=== PATIENT | female | born 1970 | race Caucasian/White ===

== ENCOUNTER 2025-01-28 16:44 | Emergency (ER) | payer OTHER ==
[~2025-01-28] VITALS: Ht 157.5 cm; Wt 82.0 kg
[~2025-01-28 16:44] MED LIST: ALLO100T PO; ATOR-47 PO; CLOP75TA70 PO; FERR325T24 PO; FURO40TA4 PO; INSU100I52 SC; INSU75IN2 SC; LIDO1PAD55 TOP; METH-928 PO; METO25TA5 PO; MUPI2OIN2 TOP; MYCO1TAB2 PO; NITR-52 PO; ONDA-188 PO; OXYC325T14 PO; PANT1INJ3 PO; PRE5T PO; PREG150C PO; ROPI0.5T26 PO; SPIR25TA8 PO; TACR1CAP4 PO; [UNRECOGNIZED DRUG - CODE] PO; [UNRECOGNIZED DRUG - CODE] PO
[2025-01-28 16:50] VITALS: BP 121/80; PULSE 77; RESP 18; TEMP 97.4; O2SAT 100
--- NOTE | 2025-01-28 19:20 | DVH ---
CLINICAL INDICATION: Injury and swelling TECHNIQUE: 3 radiographic views of the left ankle were obtained. Comparison: None FINDINGS/IMPRESSION: Possible neuropathic joint. Correlate clinically. 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 Chronic changes are noted of the navicular. Soft tissue swelling over the medial and lateral malleolus is seen with widening of the ankle mortise suggesting subluxation. Pes planus with complete loss of the plantar arch.
--- NOTE | 2025-01-28 20:40 | ED.PDOC ---
Back pain HPI HPI Comments PT ARRIVED WITH C/O LEFT ANKLE PAIN AND SWELLING AFTER TWISTING IT WHILE PUSHING A BASKET AT [facility]. DENIES NUMBNESS OR WEAKNESS OR ANY OTHER INJURY. Chief Complaint: Lower Extremity Time Seen by MD: 18:11 Reviewed Notes: Nurses Notes, Medications, Allergies Allergies: Coded Allergies: NO KNOWN ALLERGIES (Unverified , 11/20/24) Home Meds Reported Medications Insulin Lispro Protamine & Lis (Humalog Mix 75/25 Kwikpen) 75 Mg/25 Kwp Inj, UNITS SC UD for 22 Days, #30 11/23/24 Oxycodone W/ Acetaminophen (Apap/Oxycodone) 1 Tab Tab, 1 TAB PO Q4-6HR PRN for 30 Days, #180 11/23/24 Lidocaine (Lidocaine) 5 % Pad, 2-3 PATCH TOP DAILY APPLY 2-3 PATCHES ON THE SKIN DAILY NEEDED. 12 HOURS ON AND 12 HOURS OFF. 11/23/24 Mupirocin (Pseudomonas Fluores (Mupirocin) 2 % Oin, 1 APPLIC TOP TID for 15 Days, #44 11/23/24 Insulin Lispro (Insulin Lispro) 100 Unit/Ml Inj, 100 UNIT SC DAILY for 37 Days, #30 11/21/24 Phenazopyridine HCl (Eq Urinary Pain Relief Ma) 99.5 Mg Tab, 99.5 MG PO UD 11/21/24 Nitrofurantoin (Nitrofurantoin) 100 Mg Cap, 1 CAP PO BID, #20 CAP 11/21/24 Ondansetron HCl (Ondansetron Hydrochloride) 4 Mg Tab, 4 MG PO Q6HR PRN for 7 Days, #30 11/21/24 Pregabalin (Lyrica) 150 Mg Cap, 1 CAP PO BID, #60 CAP 5 Refills 11/21/24 Allopurinol (Allopurinol) 100 Mg Tab, 100 MG PO DAILY for 30 Days, MG 11/21/24 Methenamine Hippurate (Methenamine Hippurate) 1 Gm Tab, 1 GM PO BID, TAB 11/21/24 Clopidogrel Bisulfate (CLOPIDOGREL) 75 Mg Tab, 75 MG PO DAILY for 30 Days, MG 11/21/24 Ergocalciferol (Drisdol) 50,000 Unit Cap, 26520 UNIT PO QWEEKLY for 28 Days, #4 11/21/24 Furosemide (Furosemide) 40 Mg Tab, 40 MG PO DAILY for 30 Days 11/21/24 Spironolactone (Spironolactone) 25 Mg Tab, 2 TAB PO DAILY, #90 TAB 1 Refill 11/21/24 Prednisone (Prednisone) 5 Mg Tab, 5 MG PO DAILY, TAB 11/21/24 Ferrous Sulfate (Ferrous Sulfate) 325 Mg Tab, 325 MG PO BID for 30 Days, MG 11/21/24 Atorvastatin Calcium (ATORVASTATIN CALCIUM) 80 Mg Tab, 1 TAB PO DAILY, #30 TAB 5 Refills 11/21/24 Ropinirole Hydrochloride (Ropinirole Hcl) 0.5 Mg Tab, 3 TAB PO HS for 30 Days, #90 11/21/24 Metoprolol Tartrate (Metoprolol Tartrate) 25 Mg Tab, 25 MG PO BID for 30 Days, MG 11/21/24 Tacrolimus (Tacrolimus) 1 Mg Cap, 2 CAP PO BIDAC for 30 Days, #120 two capsules 11/21/24 Pantoprazole Sodium (PANTOPRAZOLE SODIUM) 40 Mg Inj, 40 MG PO DAILY, INJ 11/21/24 Mycophenolate Sodium (Mycophenolic Acid Dr) 360 Mg Tab, 360 MG PO BIDAC, TAB 11/21/24 Mode of Arrival: Wheelchair Past Medical History PAST MEDICAL HISTORY: CHF, DM, HTN, CO All Other Systems: Reviewed and Negative (SEE HPI) Physical Exam General Appearance: No Apparent Distress, Normal HEENT: Pharynx Normal Neck: Full Range of Motion, Non-Tender Respiratory: Lungs Clear, No Respiratory Distress, Normal Breath Sounds Cardiovascular: No Murmur, Normal Peripheral Pulses, Regular Rate/Rhythm Breast Exam: Deferred Gastrointestinal: Non Tender, Soft Genitalia: Deferred Pelvic: Deferred Rectal: Deferred Extremities: Normal capillary refill, Non-tender Musculoskeletal : Location: Left Extremity Location: Ankle (MODERATE EDEMA ANTERIOR ANKLE AND DORSUM FOOT STRENGTH SENSORY MOTION INTACT POSITIVE PEDAL PULSE) Apperance: Normal Neurologic: Alert, No Motor Deficits, Normal Affect, Normal Mood, No Sensory Deficits Cerebellar Function: Normal Reflexes: NOT DONE Skin: Dry, Normal Color, Warm Lymphatic: No Adenopathy Was a procedure done? Was a procedure done?: No Back Pain Differential Dx Differential Diagnosis: Fracture, Musculoskeletal Pain, Strain X-Ray, Labs, Meds, VS Vital Signs Date Time Temp Pulse Resp B/P (MAP) Pulse Ox O2 Delivery O2 Flow Rate FiO2 11/7/25 16:50 Room Air 01/28/25 16:50 97.4 77 18 121/80 100 97.4 X-Ray, Labs, Meds, VS Comment FINDINGS/IMPRESSION: Possible neuropathic joint. Correlate clinically. 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 Chronic changes are noted of the navicular. Soft tissue swelling over the medial and lateral malleolus is seen with widening of the ankle mortise suggesting subluxation. Pes planus with complete loss of the plantar arch. PATIENT PLACED IN STIRRUP AND SHORT-LEG POSTERIOR SPLINT. PATIENT CURRENTLY WITH WHEELCHAIR OF HER OWN. 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 ADVISED ON RICE. ADVISED ON ER RETURN PRECAUTIONS PATIENT INDICATES UNDERSTANDING AND AGREES WITH DISCHARGE PLAN OF CARE. Images Reviewed?: Images reviewed and evaluated by me Time of 1ST Reevaluation: 18:11 Reevaluation 1ST: Unchanged Reevaluation 2ND: Improved Patient Education/Counseling: Diagnosis, Treatment, Need For Follow Up Family Education/Counseling: No Family Present SEPSIS Sepsis Screen Date sepsis recognized/suspect: Jan 28, 2025 Time Sepsis recognized/suspect: 1655 Recent Procedure: No On Antibiotic Therapy: No Respiratory Rate >20: No Heart Rate >90: No Temp<36 C (96.8 F) or >38.3 C: No SBP <90 or MAP <65 mmHG: No New Acute Mental Status Change: No Is the patient on CPAP, BIPAP,: No Physician Orders L Ankle 3 View (01/28/25 18:13) Splints (01/28/25 ) Vital Signs Date Time Temp Pulse Resp B/P (MAP) Pulse Ox O2 Delivery O2 Flow Rate FiO2 01/28/25 16:50 Room Air 01/28/25 16:50 97.4 77 18 121/80 100 97.4 Departure 1 Departure Time of Disposition: 21:08 Impression: Primary Impression: Calcaneus fracture, left Qualified Codes: S92.002A - Unspecified fracture of left calcaneus, initial encounter for closed fracture Additional Impression: Fracture of talus of left ankle, closed Qualified Codes: S92.102A - Unspecified fracture of left talus, initial encounter for closed fracture Disposition: 01 HOME / SELF CARE / HOMELESS Condition: Stable Discharged With: Self Critical Care Note Critical Care Time?: No Stability Stability form required: ORLANDO Wallis Jan 28, 2025 20:40
== END 2025-01-28 21:22 | disposition home or self-care (01) ==
LOC: ER 16:44
DX: S92.002A Unspecified fracture of left calcaneus, initial encounter for closed fracture (principal); S92.102A Unspecified fracture of left talus, initial encounter for closed fracture; E11.9 Type 2 diabetes mellitus without complications; I10 Essential (primary) hypertension; X50.1XXA Overexertion from prolonged static or awkward postures, initial encounter; Y93.89 Activity, other specified; Y92.89 Other specified places as the place of occurrence of the external cause; Y99.8 Other external cause status
CPT/HCPCS: 29515; 73610